=== PATIENT | male | born 2000 | race Asian ===

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

== ENCOUNTER → 2022-05-13 | Outpatient (CLI) | payer BC, SELFPAY | END | disposition home or self-care (01) | PROVIDERS: PCP Pediatrics; Visit Provider Podiatrist | DX: L03.032 Cellulitis of left toe (principal) | CPT/HCPCS: 87070; 87077; 87186; 87205 ==

== ENCOUNTER 2022-12-25 19:25 | Emergency (ER) | payer BC, SELFPAY ==
[2022-12-25 19:26] VITALS: BP 138/77; PULSE 93; RESP 16; TEMP 36.4; O2SAT 98
[2022-12-25 21:30] VITALS: BP 138/80; PULSE 111; RESP 23; O2SAT 100; BMI 27.1
--- NOTE | 2022-12-25 22:19 | EDS_ITS ---
HPI History of Present Illness Chief Complaint: ETOH Intox Narrative Narrative: 22-year-old male presenting with EtOH intoxication. He states he drank 5 beers. Apparently he passed out and was not responding for his friend so they had him transported by EMS. Nursing staff states that he was a little out of it when he arrived but he is waking up. He states he does not have any pain or nausea. He states he would not normally drink 5 beers. Denies drugs or alcohol. PFSH [facility] Medical History Asthma Home Medications Symbicort 80-4.5 Mcg Inhaler 1 tab PO DAILY 04/23/20 [History Last Taken Unknown] albuterol sulfate 90 mcg/actuation aerosol inhaler 2 puff inhalation Q4H PRN PRN Wheezing 04/23/20 [History Last Taken Unknown] azelastine 137 mcg (0.1 %) nasal spray aerosol 2 spray NASAL BID 04/23/20 [History Last Taken Unknown] fluticasone propionate 50 mcg/actuation nasal spray,suspension 2 spray NASAL DAILY 04/23/20 [History Last Taken Unknown] Allergy/AdvReac Type Severity Reaction Status Date / Time tree nut Allergy Anaphylaxis Verified 12/25/22 19:29 Beef Containing Products AdvReac PT UNSURE Verified 12/25/22 19:29 OF REACTION NSAIDS (Non-Steroidal AdvReac NEEDS Verified 12/25/22 19:29 Anti-Inflamma FOLLOW-UP Social History Smoking Status: Never smoker ROS ROS ED Constitutional Constitutional ED: Denies chills, fever(s) or sweats Eyes Eyes: Denies blurry vision or change in vision ENT ENT ED: Denies ear pain or sore throat Cardiovascular Cardiovascular: Denies chest pain, palpitations or racing heartbeat Respiratory/Chest Respiratory/Chest: Denies cough, dyspnea or sputum Gastrointestinal Gastrointestinal: Denies abdominal pain, constipation, diarrhea, nausea or vomiting Genitourinary Genitourinary ED: Denies dysuria, hematuria or urinary frequency Musculoskeletal Musculoskeletal: Denies arthralgias, myalgias or neck pain Integumentary Denies abscess, Abrasions or rash Neurologic Neurologic: Denies headache(s), paresthesias or weakness Psychiatric Psychiatric: Denies anxiety, depression, suicidal ideation or suicidal thoughts Endocrine Endocrinology: Denies polydipsia or polyuria EXAM Physical Exam Const Vital Signs: 12/25/22 19:26 12/25/22 21:30 Temperature 97.6 F L Temperature Source Temporal Pulse Rate 93 111 H Respiratory Rate 16 23 H Blood Pressure 138/77 H 138/80 H Blood Pressure Mean 97 99 Pulse Ox 98 100 Oxygen Delivery Method Room Air Room Air Positive well nourished General Appearance ED: NAD; Negative for pallor HEENT Reports moist mucous membranes Eyes PERRL and EOMs intact bilaterally Resp normal respiratory effort and clear to auscultation bilaterally Auscultation: Negative for rales, rhonchi or wheezes Cardio regular rate and regular rhythm Neuro oriented x3, CN's II-XII intact bilaterally and no sensory deficits noted Motor Exam: strength 5/5 throughout Psych mental status grossly normal Skin General Skin Exam: Negative for jaundice or pallor MDM MDM MDM Narrative Medical decision making narrative: Patient is intoxicated. There is no history or evidence of trauma. Patient is awake and alert in no distress. Physical exam otherwise unremarkable. Patient does not remember being transported by EMS. I do not believe he needs blood work or imaging. I will have him call for a sober ride. Impression: 1. EtOH intoxication Discharge Plan Triage Chief Complaint: ETOH Intox ED Provider: Julian Hayward Dx/Rx/DC Orders Prescriptions: No Action azelastine 1 SPRAY aerosol,spray 2 spray NASAL BID albuterol sulfate 1 INHALER inhaler 2 puff inhalation Q4H PRN PRN (Reason: Wheezing) fluticasone propionate 1 SPRAY spray,suspension 2 spray NASAL DAILY Symbicort 80-4.5 Mcg Inhaler 1 tab PO DAILY Primary Care Provider: Jj Jara Referrals: Jj Jara MD [Primary Care Provider] -
--- NOTE | 2022-12-25 22:45 | ED.RN ---
CALL PLACED TO NURSE AT [facility]. UPDATED NURSE ON PT'S CURRENT CONDITION AND THAT MD FEELS HE IS STABLE FOR DISCHARGE. PT'S CELL PHONE IS , AND HE IS UNABLE TO CALL HIS ROOMMATE FOR A RIDE BACK TO CAMPUS. NURSE STATES SHE'LL SEND SECURITY TO TRANSPORT PT BACK TO [facility] FOR OBSERVATION. PT INFORMED HIS MOTHER HAD PREVIOUSLY CALLED FOR A STATUS UPDATE, DID NOT SPEAK TO THIS RN. PT STATES HE DOES NOT WANT ANY INFO GIVEN TO MOTHER OTHER THAN I WAS SEEN, I'M STABLE AND WAS DISCHARGED BACK TO [facility]. PT STATES HE WILL CALL HIS MOTHER LATER AND UPDATE HER.
--- NOTE | 2022-12-25 22:50 | ED.RN ---
PT AMBULATED OUT IN HALLWAY WITH [employer]ADY GATE, ALERT AND ORIENTED X4. JANNY JOVANI GIVEN, PT DENIES NAUSEA.
[2022-12-25 22:52] VITALS: BP 138/78; PULSE 81; RESP 16; O2SAT 100
== END 2022-12-25 22:53 | disposition home or self-care (01) ==
PROVIDERS: Emergency Provider Student in an Organized Health Care Education/Training Program; PCP Pediatrics; Visit Provider Student in an Organized Health Care Education/Training Program
DX: F10.129 Alcohol abuse with intoxication, unspecified (principal); J45.909 Unspecified asthma, uncomplicated; Z79.899 Other long term (current) drug therapy
CPT/HCPCS: 99284; A4216

== ENCOUNTER → 2024-04-26 | Outpatient (CLI) | payer BC, SELFPAY ==
[2024-04-26 16:20] LABS: Absolute Lymphocyte Count 0.99 X10^3/uL (0.83-4.51); Absolute Neutrophil Count 3.5 X10^3/uL (2.0-7.7); Basophil# 0.02 X10^3/uL; Basophil% 0.4 % (0-1); Hematocrit 43.4 % (40-54); Hemoglobin 14.6 g/dL (13.0-16.5); Lymphocyte # 0.99 X10^3/ul (0.83-4.51); Lymphocyte % 20.1 % (19-41); Mean Corp Hgb Conc 33.6 g/dL (32-36); Mean Corpuscular Hgb 30.8 pg (27.0-32.0); Mean Corpuscular Volume 91.6 fL (80-94); Mean Platelet Vol. 10.9 fl (6.2-12.0); Monocyte# 0.34 X10^3/uL; Monocyte% 6.9 % (0-10); NRBC Flagged by Analyzer 0 % (0-5); Neutrophil # 3.47 X10^3/uL (2.7-7.7); Neutrophil % 70.4 % (47-70); Platelet Count 233 K/mm3 (150-450); RBC Distribution Width CV 12.7 % (11.6-14.6); Red Blood Count 4.74 M/mm3 (4.6-6.2); White Blood Count 4.9 K/mm3 (4.4-11.0)
[2024-04-26 16:28] LABS: Erythrocyte Sedimentation Rate 4 mm/hr (0-20)
[2024-04-26 16:52] LABS: ALB/GLOB Ratio 1.2 RATIO (0.9-2.4); AST(SGOT) 24 U/L (15-37); Alanine Aminotransfer ALT/SGPT 28 U/L (16-61); Albumin, Serum 3.9 g/dL (3.2-5.0); Alkaline Phosphatase 62 U/L (45-117); Anion Gap 6 (5-15); BUN 9 mg/dL (7-18); BUN/Creat Ratio 12.4 RATIO (10-20); CRP < 2.90 mg/L (0.0-3.0); Calcium,Total 9.2 mg/dL (8.5-10.1); Chloride 107 mmol/L (98-107); Creatinine, Serum 0.73 mg/dL (0.70-1.30); EST Glomerular Filtration Rate 142 mL/min (>60); Est Glom Filt Rate - Afr Amer 172 mL/min (>60); Globulin 3.2 g/dL (2.2-4.2); Glucose 86 mg/dL (74-106); Protein, Total 7.1 g/dL (6.4-8.2); Sodium Level 139 mmol/L (136-145)
[2024-04-28 15:08] LABS: Complement C3 108 mg/dL (82-167); Cytoplasmic Ab (C-ANCA) <1:20 titer (Neg:<1:20); EBV Acute VCA IgM < 36.0 U/mL (0.0-35.9); EBV-VCA IgG > 600.0 U/mL (0.0-17.9); Perinuclear Ab (P-ANCA) <1:20 titer (Neg:<1:20)
== END | disposition home or self-care (01) ==
LOC: MTLAB 14:43
PROVIDERS: PCP Pediatrics
DX: R21 Rash and other nonspecific skin eruption (principal); I77.6 Arteritis, unspecified; J02.9 Acute pharyngitis, unspecified; D69.0 Allergic purpura
CPT/HCPCS: 36415; 80053; 85025; 85652; 86140; 86160; 86256; 86664; 86665